=== PATIENT | female | born 1980 | race Caucasian/White ===

== ENCOUNTER 2017-11-04 17:00 | Emergency (ER) | payer MEDICAID ==
[~2017-11-04] VITALS: Ht 149.9 cm; Wt 94.3 kg
[2017-11-04 17:25] VITALS: BP 128/78; Ht 149.9 cm; Wt 94.3 kg
== END 2017-11-04 18:15 | disposition home or self-care (01) ==
LOC: ED 17:00
DX: R21 Rash and other nonspecific skin eruption (principal); R50.9 Fever, unspecified

== ENCOUNTER 2019-07-29 12:05 | Emergency (ER) | payer MEDICAID ==
[~2019-07-29] VITALS: Ht 144.8 cm; Wt 109.3 kg
[2019-07-29 12:30] VITALS: BP 195/88; Ht 144.8 cm; Wt 109.3 kg
== END 2019-07-29 14:08 | disposition home or self-care (01) ==
LOC: ED 12:05
DX: N39.0 Urinary tract infection, site not specified (principal); M54.5 Low back pain
CPT/HCPCS: J1885